=== PATIENT | female | born 1960 | race Two or more races ===

== ENCOUNTER 2018-01-30 11:50 | Inpatient (IN) | payer OTHER ==
[~2018-01-30] VITALS: Ht 157.5 cm; Wt 65.8 kg
== END 2018-02-17 14:45 | disposition home or self-care (01) | DRG 331 ==
LOC: O/R 02-01 10:15 → MEDI 02-15 06:37
PROVIDERS: Colon & Rectal Surgery
PROC: 0DQP0ZZ Repair Rectum, Open Approach (ICD-10-PCS; 2018-02-15)
PROC: 0USG0ZZ Reposition Vagina, Open Approach (ICD-10-PCS; principal; 2018-02-15 17:45)
DX: K62.3 Rectal prolapse (principal); N81.5 Vaginal enterocele; I87.2 Venous insufficiency (chronic) (peripheral); Z85.3 Personal history of malignant neoplasm of breast

== ENCOUNTER 2019-06-29 05:40 | Day surgery (SDC) | payer OTHER | END 2019-06-29 10:05 | disposition home or self-care (01) | LOC: AMB-ENDOS 05:40 | DX: K57.30 Diverticulosis of large intestine without perforation or abscess without bleeding (principal); K64.1 Second degree hemorrhoids; Z12.11 Encounter for screening for malignant neoplasm of colon ==